=== PATIENT | female | born 1955 | race Caucasian/White ===

== ENCOUNTER 2017-06-10 08:24 | Emergency (ER) | payer BC ==
[2017-06-10 08:49] LABS: ABSOLUTE EOSINOPHILS # (AUTO) 0.1 10^3/uL (0.0-0.6); ABSOLUTE LYMPHOCYTES (AUTO) 2.1 10^3/uL (0.5-4.7); ABSOLUTE MONOCYTES (AUTO) 0.7 10^3/uL (0.1-1.4); BASOPHILS % (AUTO) 0.6 % (0-2); EOSINOPHILS % (AUTO) 1.9 % (0-6); HEMATOCRIT 44.3 % (36.0-47.0); HEMOGLOBIN 14.9 g/dL (12.0-15.5); MEAN CORPUSCULAR HEMOGLOBIN 32.1 pg (27.0-33.4); MEAN CORPUSCULAR HGB CONC 33.7 g/dL (32.0-36.0); MEAN CORPUSCULAR VOLUME 95 fl (80-97); MONOCYTES % (AUTO) 9.6 % (3-13); PLATELET COUNT 362 10^3/uL (150-450); RED BLOOD COUNT 4.64 10^6/uL (3.72-5.28); RED CELL DISTRIBUTION WIDTH 12.6 % (11.5-14.0); SEGMENTED NEUTROPHILS % (AUTO) 57.9 % (42-78); TOTAL CELLS COUNTED % (AUTO) 100 %
[2017-06-10] MEDS ORDERED: METHYLPREDNISOLONE INJ 125 MG/2 ML SDV IV ONE (08:52)
[2017-06-10 09:04] LABS: ALANINE AMINOTRANSFERASE 56 U/L (9-52); ALBUMIN 4.5 g/dL (3.5-5.0); ALKALINE PHOSPHATASE 66 U/L (38-126); ANION GAP 14 (5-19); ASPARTATE AMINO TRANSFERASE 70 U/L (14-36); BILIRUBIN,DIRECT 0.2 mg/dL (0.0-0.4); BILIRUBIN,TOTAL 0.4 mg/dL (0.2-1.3); BLOOD UREA NITROGEN 14 mg/dL (7-20); CALCIUM 10.2 mg/dL (8.4-10.2); CARBON DIOXIDE 25 mmol/L (22-30); CHLORIDE 104 mmol/L (98-107); CREATINE KINASE 149 U/L (30-135); GLUCOSE 95 mg/dL (75-110); POTASSIUM 4.8 mmol/L (3.6-5.0); SODIUM 142.5 mmol/L (137-145); TOTAL PROTEIN 6.4 g/dL (6.3-8.2)
--- NOTE | 2017-06-10 09:07 | RADIOLOGY REPORT (SQ) ---
EXAM DESCRIPTION: CHEST SINGLE VIEW COMPLETED DATE/TIME: 06/10/2017 8:56 am REASON FOR STUDY: SOB COMPARISON: None. NUMBER OF VIEWS: One view. TECHNIQUE: Single frontal radiographic view of the chest acquired. LIMITATIONS: None. FINDINGS: LUNGS AND PLEURA: No opacities, masses or pneumothorax. No pleural effusion. Attenuated bl ood vessels and flattened karson-diaphragms. MEDIASTINUM AND HILAR STRUCTURES: No masses. Contour normal. HEART AND VASCULAR STRUCTURES: Heart normal in size. Normal vasculature. BONES: No acute findings. HARDWARE: None in the chest. OTHER: No other significant finding. IMPRESSION: COPD. NO ACUTE RADIOGRAPHIC FINDING IN THE CHEST. TECHNICAL DOCUMENTATION: JOB ID: [id number] [employer]- All Rights Reserved Reading location - IP/workstation name: [email or web address]
[2017-06-10 09:16] LABS: CREATINE KINASE MB 3.29 ng/mL (<4.55)
[2017-06-10 09:17] LABS: TROPONIN I < 0.012 ng/mL
[2017-06-10 09:37] LABS: APPEARANCE,URINE CLEAR; BILIRUBIN,URINE NEGATIVE (NEGATIVE); COLOR,URINE STRAW; GLUCOSE, URINE NEGATIVE (NEGATIVE); KETONES,URINE NEGATIVE (NEGATIVE); LEUKOCYTE ESTERASE,URINE NEGATIVE (NEGATIVE); NITRITE,URINE NEGATIVE (NEGATIVE); PROTEIN,URINE 30 mg/dL (NEGATIVE); URINE SPECIFIC GRAVITY 1.011; UROBILINOGEN,URINE NEGATIVE mg/dL (<2.0)
--- NOTE | 2017-06-10 11:27 | RADIOLOGY REPORT (SQ) ---
EXAM DESCRIPTION: CTA CHEST COMPLETED DATE/TIME: 06/10/2017 11:03 am REASON FOR STUDY: Rule out PE Chest pain COMPARISON: AP chest 06/10/2017 TECHNIQUE: CT scan of the chest performed using helical scanning technique with dynamic intravenous contrast injection. Images reviewed with lung, soft tissue and bone windows. Reconstructed coronal and sagittal MPR images reviewed. Additional 3 dimensional post-processing performed to develop Maximal Intensity Projection images (PR P). All images stored on PACS. All CT scanners at this facility use dose modulation, iterative reconstruction, and/or weight based d osing when appropriate to reduce radiation dose to as low as reasonably achievable (ALARA). [facility]: Dose Right [facility]: CareDose [facility]: Dose Right [facility]: Teradose 4D [facility]: EntomoPharm CONTRAST TYPE AND DOSE: contrast/concentration: Isovue 370.00 mg/ml; Total Contrast Delivered: 56.0 ml; Total Saline Delivered: 87.0 ml Contrast bolus adequate for pulmonary arteries and aorta. RENAL FUNCTION: Creatinine 0.64 RADIATION DOSE: CT Rad equipment meets quality standard of care and radiation dose reduction techniq ues were employed. CTDIvol: 14.3 - 16.5 mGy. DLP: 526 mGy-cm. . LIMITATIONS: None. FINDINGS: LUNGS AND PLEURA: Mild changes of obstructive lung disease at the apices. No focal infilt rates. No pleural effusion. No pneumothorax. No pulmonary nodules. No pleural effusions or pleura l calcified plaques. AORTA AND GREAT VESSELS: Ascending thoracic aorta 4 cm in diameter. No thoracic aortic dissection HEART: No pericardial effusion. No significant coronary artery calcifications. PULMONARY ARTERIES: No emboli visualized in the main pulmonary arteries or the segmental branches. HILAR AND MEDIASTINAL STRUCTURES: No identified masses or abnormal nodes. HARDWARE: None in the chest. Lumbar fusion hardware at the bottom edge of the field of view. UPPER ABDOMEN: No significant findings. Limited exam. THYROID AND OTHER SOFT TISSUES: No masses. No adenopathy. BONES: Old left posterior healed rib fractures 3D MIPS: Confirm above findings. OTHER: No other significant finding. IMPRESSION: Obstructive lung disease COMMENT: Quality ID # [id number]: Final reports with documentation of one or more dose reduction techniques (e.g., Automated exposure control, adjustment of the mA and/or kV according to patient size, use of iterative reconstruction technique) TECHNICAL DOCUMENTATION: JOB ID: [id number]- All Rights Reserved Reading location - IP/workstation name: [email or web address]
--- NOTE | 2017-06-10 12:23 | ER Document Report ---
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 With increasing shortness of breath and wheezing. No fever chills no productive cough. No other constitutional symptoms. REVIEW OF SYSTEMS: CONSTITUTIONAL : Denies fever, chills, or sweats. Denies recent illness. EENT: Denies eye, ear, throat, or mouth pain or symptoms. Denies nasal or sinus congestion or discharge. Denies throat, tongue, or mouth swelling or difficulty swallowing. CARDIOVASCULAR: Denies chest pain. Denies palpitations or racing or irregular heart beat. Denies ankle edema. RESPIRATORY: Denies cough, cold, or chest congestion. GASTROINTESTINAL: Denies abdominal pain or distention. Denies nausea, vomiting , or diarrhea. Denies blood in vomitus, stools, or per rectum. Denies black, tarry stools. Denies constipation. GENITOURINARY: Denies difficulty urinating, painful urination, burning, frequency, blood in urine, or discharge. FEMALE GENITOURINARY: Denies vaginal bleeding, heavy or abnormal periods, irregular periods. Denies vaginal discharge or odor. MUSCULOSKELETAL: Denies back or neck pain or stiffness. Denies joint pain or swelling. SKIN: Denies rash, lesions or sores. HEMATOLOGIC : Denies easy bruising or bleeding. LYMPHATIC: Denies swollen, enlarged glands. NEUROLOGICAL: Denies confusion or altered mental status. Denies passing out or loss of consciousness. Denies dizziness or lightheadedness. Denies headache. Denies weakness or paralysis or loss of use of either side. Denies problems with gait or speech. Denies sensory loss, numbness, or tingling. Denies seizures. PSYCHIATRIC: Denies anxiety or stress. Denies depression, suicidal ideation, or homicidal ideation. ALL OTHER SYSTEMS REVIEWED AND NEGATIVE. PHYSICAL EXAMINATION: GENERAL: Well-appearing, well-nourished and in no acute distress. Cachexia of emphysema HEAD: Atraumatic, normocephalic. EYES: Pupils equal round and reactive to light, extraocular movements intact, conjunctiva are normal. ENT: Nares patent, oropharynx clear without exudates. Moist mucous membranes. NECK: Normal range of motion, supple without lymphadenopathy LUNGS: Bilaterally decreased breath sounds with diffuse wheezing, bilaterally decreased breath sounds. No wheezes rales or rhonchi. HEART: Regular rate and rhythm without murmurs ABDOMEN: Soft, nontender, nondistended abdomen. No guarding, no rebound. No masses appreciated. Female : deferred Musculoskeletal: Normal range of motion, no pitting or edema. No cyanosis. NEUROLOGICAL: Cranial nerves grossly intact. Normal speech, normal gait. Normal sensory, motor exams PSYCH: Normal mood, normal affect. SKIN: Warm, Dry, normal turgor, no rashes or lesions noted. Dictation was performed using [employer] voice recognition software TRAVEL OUTSIDE OF THE [place] IN LAST 30 DAYS: No - HPI Patient complains to provider of: COPD Duration: Worse/persistent Initiating Event: No: Allergy, Aspiration/Choking, Exertion, Exposure to chemicals, Exposure to dust, Exposure to fumes, Exposure to mold, Exposure to smoke, Out of meds, Sports/exercise, URI, Other Quality of pain: denies: No pain, Achy, Burning, Cramping, Dull, Fullness, Pressure, Sharp, Stabbing, Throbbing, Other Severity: Moderate Pain Level: 4 Context: denies: DVT, Factor V Leiden, Hx asthma, Hx CHF, Hx COPD, Malignancy, , Recent cardiac event, Recent foreign travel, Recent long distance trvl , Recent immobilization, Recent surgery, Smoker, Other Chest pain/discomfort: denies: Center, Constant, Heaviness, Intermittent, Left, Pain, Radiates to arm, Radiates to back, Radiates to jaw, Right, Tightness, Worse with deep breaths Cough: Nonproductive. denies: Productive, Stridor, Suspect aspiration Sputum amount: Scant Sputum color: denies: Brown, Clear, Creamy, [place], Green, [place] tinged, Red (blood ), Red Specks, Rust, Small Clots, Sharp, White, Yellow Sputum consistency: denies: Frothy, Mucoid, Mucoid Plug, Tenacious, Thick, Thin At home treatment: denies: Bronchodilators, CPAP, Diuretics, Inhaled steroids, Oral steroids, Oxygen, Singulair, Theophylline EMS treatments: No: Bronchodilators, CPAP, Diuretics, Epinephrine, Nitrates, Oxygen, Solumedrol Associated symptoms: denies: None, Ankle/leg swelling, Allergy/hay fever, Anxiety, Bloody cough, Chest pain/discomfort, Chills, Congestion, Cough, Dental decay, Difficulty breathing, Earache, Extertional dyspnea, Facial pain, Fever, Headache, Heart racing, Hoarseness, Hurts to breathe, Hyperventilation, Jaw pain , Leg/calf/joint pain, Muscle spasms, Orthopnea, PND, Runny nose, Sinus pain/ pressure, Short of breath, Sore Throat, Sweaty, Tingling face, Tingling hands, Unable to swallow, Toothache, Wheezing, Other - Related Data Allergies/Adverse Reactions: Penicillins Allergy (Verified 06/10/17 09:00) "Rash head to toe" Sulfa (Sulfonamide Antibiotics) Allergy (Verified 06/10/17 09:00) "rash head to toe" Past Medical History - General Information source: Patient - Social History Smoking Status: Current Every Day Smoker Chew tobacco use (# tins/day): No Frequency of alcohol use: None Drug Abuse: None Family History: Reviewed & Not Pertinent Patient has suicidal ideation: No Patient has homicidal ideation: No - Past Medical History Cardiac Medical History: Denies: Hx Coronary Artery Disease, Hx Heart Attack, Hx Hypertension Pulmonary Medical History: Reports: Hx COPD Denies: Hx Asthma, Hx Bronchitis, Hx Pneumonia Neurological Medical History: Denies: Hx Cerebrovascular Accident, Hx Seizures Renal/ Medical History: Denies: Hx Peritoneal Dialysis Musculoskeltal Medical History: Reports Hx Arthritis - BACK - Immunizations Hx Diphtheria, Pertussis, Tetanus Vaccination: Yes Review of Systems - Review of Systems Constitutional: denies: No symptoms reported, See HPI, Chills, Diaphoresis, Fever, Malaise, Weakness, Other, Weight gain, Weight loss, Recent illness EENT: denies: No symptoms reported, See HPI, Eye pain, Eye discharge, Blurred vision, Tearing, Double vision, Ear pain, Ear discharge, Nose pain, Nose congestion, Nose discharge, Sinus pressure, Sinus discharge, Throat pain, Difficulty swallowing, Throat swelling, Mouth pain, Mouth swelling, Dental problem, Vertigo, Other Cardiovascular: denies: No symptoms reported, See HPI, Chest pain, Palpitations , Heart racing, Orthopnea, Dyspnea, Syncope, Dizziness, Lightheaded, Edema, Other, Paroxysmal Nocturnal Dysp Respiratory: See HPI Gastrointestinal: denies: No symptoms reported, See HPI, Abdomen distended, Abdominal pain, Diarrhea, Nausea, Vomiting, Constipation, Blood streaked bowels , Poor appetite, Poor fluid intake, Blood in vomit, Black stools, Rectal bleeding, Last bowel movement, Fecal incontinence, Other Genitourinary: denies: No symptoms reported, See HPI, Burning, Dysuria, Discharge, Frequency, Flank pain, Hematuria, Incontinence, Pain, Urgency, Retention, Other Musculoskeletal: denies: No symptoms reported, See HPI, Back pain, Gout, Joint pain, Joint swelling, Muscle pain, Muscle stiffness, Neck pain, Deformity, Leg swelling, Ankle swelling, Other Neurological/Psychological: denies: No symptoms reported, See HPI, Confusion, Dementia, Depression, Hallucinations, Anxiety, Homicidal ideation, Sensory change, Weakness, Gait changes, Loss of power, Paralysis, Seizure, Lost consciousness, Headaches, Speech impairment, Numbness, Suicidal ideation, Tingling, Tremor, Other Physical Exam - Vital signs Vitals: Resp 20 06/10/17 08:33 Course - Re-evaluation Re-evalutation: 06/10/17 12:24 Was given bronchodilator treatment with clinical improvement discharge home she is still having exertional shortness of breath but not undressed. On resting her pulse oximeter is 94-95% on room air. - Vital Signs Vital signs: Temp Pulse Resp BP Pulse Ox 98.8 F 17 129/100 H 90 L 06/10/17 08:51 06/10/17 12:46 06/10/17 12:46 06/10/17 12:46 - Laboratory Result Diagrams: 06/10/17 08:35 06/10/17 08:35 Laboratory results interpreted by me: 06/10/17 06/10/17 08:35 09:10 AST 70 H ALT 56 H Creatine Kinase 149 H Urine Protein 30 H - Diagnostic Test Radiology reviewed: Reports reviewed - Chest x-ray reported by radiologist as unremarkable except emphysematous pattern. CT of the chest came back negative. - EKG Interpretation by Me EKG shows normal: Sinus rhythm Rate: Normal Rhythm: NSR - Normal sinus rhythm at the rate of 97 bpm normal axis no acute ST elevation ST depression T-wave inversion. Discharge - Discharge Clinical Impression: COPD with acute exacerbation Condition: Fair Disposition: HOME, SELF-CARE Instructions: Chronic Obstructive Lung Disease ([facility]) Additional Instructions: Please follow-up with primary care physician within 1-2 days for home oxygen monitoring Prescriptions: Prednisone [Deltasone 10 mg Tablet] 10 mg PO ASDIR PRN #21 tablet PRN Reason: Referrals: JAIR CARRILLO, [Primary Care Provider] - Follow up as needed
[2017-06-10 12:59] VITALS: BP 129/100
--- NOTE | 2017-06-12 07:54 | EKG REPORT ---
SEVERITY:- DEFECTIVE ECG - SINUS RHYTHM PROBABLE LEFT ATRIAL ABNORMALITY ARM LEADS REVERSED : Confirmed by: Apolinar Lamb MD 12-Jun-2017 07:53:15
== END 2017-06-10 12:51 | disposition home or self-care (01) ==
LOC: ER 08:24
DX: J44.1 Chronic obstructive pulmonary disease with (acute) exacerbation (principal); F17.200 Nicotine dependence, unspecified, uncomplicated; R06.02 Shortness of breath
CPT/HCPCS: 36415; 71045; 71275; 80053; 81001; 82550; 82553; 84484; 85025; 93005; 93010; 99284

== ENCOUNTER 2017-08-24 11:00 | Day surgery (SDC) | payer BC ==
[~2017-08-24 11:00] MED LIST: PROPOFOL INJ 200 MG/20 ML VIAL IV ONE
--- NOTE | 2017-08-24 12:46 | Operative Report ---
Operative Report DATE OF SURGERY: 08/24/17 Operative Report: The risks, benefits and alternatives of the procedure including risks of bleeding, perforation requiring surgery are explained to the patient in detail and informed consent is obtained. The patient is brought back to the endoscopy suite and placed in the left, lateral decubital position. Timeout was called. Propofol medication is administered. A rectal examination is done which did not reveal any masses, tears or fissures. An Olympus videoscope was inserted into the patient's rectum. It is carefully advanced all the way to the cecum. The cecum was identified by the usual anatomical landmarks including the ileocecal valve as well as the appendiceal office. Photodocumentation is obtained. Scope was then sequentially pulled back via the various segments of the colon including the ascending colon, hepatic flexure, transverse colon, splenic flexure, descending colon and finally into the rectosigmoid portions of the colon. Retroflexion maneuvers performed. The risks benefits and alternatives of the procedure explained to the patient in detail and informed consent is obtained.A GIF Olympus video scope was inserted into the patient's mouth and hypopharynx, the esophagus is identified intubated and insufflated ,the scope was then advanced through the esophagus stomach and duodenum, retroflexion maneuver is done, the esophagus stomach and first and second portions of the duodenum examined PREOPERATIVE DIAGNOSIS: Change in bowel habits. Gastroesophageal reflux disease POSTOPERATIVE DIAGNOSIS: Colonoscopy completed to the cecum. Random biopsies obtained in the right side of the colon status post biopsy rule out lymphocytic , microscopic, microscopic colitis. Internal hemorrhoids. Gastritis status post biopsy rule out Helicobacter pylori. Old scarring suggestive of a previous ulcer. Gastric erosion noted OPERATION: Colonoscopy with biopsy. EGD with biopsy SURGEON: PAUL PRATER ANESTHESIA: LMAC TISSUE REMOVED OR ALTERED: As noted above. COMPLICATIONS: None. ESTIMATED BLOOD LOSS: None. INTRAOPERATIVE FINDINGS: As noted above. PROCEDURE: Patient tolerated the procedure well. No immediate postprocedure complications are noted. Patient discharged in good condition. Discharge date 08/24/2017. Discharge diet: Regular. Discharge activity: Regular. 2-3 week follow-up to discuss findings. Patient is instructed to call the office or proceed to the emergency room should there be any further problems or questions. Wait on the pathology.
[2017-08-24 13:05] VITALS: BP 106/75
== END 2017-08-24 13:10 | disposition home or self-care (01) ==
LOC: END 11:00
PROVIDERS: ATTEND Internal Medicine Gastroenterology
PROC: 0DB68ZX Excision of Stomach, Via Natural or Artificial Opening Endoscopic, Diagnostic (ICD-10-PCS; principal; 2017-08-24 14:00)
PROC: 0DBE8ZX Excision of Large Intestine, Via Natural or Artificial Opening Endoscopic, Diagnostic (ICD-10-PCS; 2017-08-24 14:00)
DX: K29.50 Unspecified chronic gastritis without bleeding (principal); K52.831 Collagenous colitis; K64.8 Other hemorrhoids; K21.9 Gastro-esophageal reflux disease without esophagitis; R19.4 Change in bowel habit; J44.9 Chronic obstructive pulmonary disease, unspecified; Z87.891 Personal history of nicotine dependence
CPT/HCPCS: 43239; 45380; 88305 ×2; J2704; 813

== ENCOUNTER → 2019-05-05 | Outpatient (CLI) | payer BC ==
--- NOTE | 2019-05-05 12:55 | RADIOLOGY REPORT (SQ) ---
EXAM DESCRIPTION: CHEST PA/LATERAL COMPLETED DATE/TIME: 05/05/2019 11:49 am REASON FOR STUDY: CHRONIC OBSTRUCTIVE PULMONARY DISEASE W (ACUTE) EXACERBATION COMPARISON: None. EXAM PARAMETERS: NUMBER OF VIEWS: two views TECHNIQUE: Digital Frontal and Lateral radiographic views of the chest acquired. RADIATION DOSE: NA LIMITATIONS: none FINDINGS: LUNGS AND PLEURA: Hyperexpansion of the lungs. MEDIASTINUM AND HILAR STRUCTURES: No masses or contour abnormalities. HEART AND VASCULAR STRUCTURES: Normal heart size. No CHF. Tortuous descending aorta. BONES: No acute findings. HARDWARE: Scoliosis. OTHER: No other significant finding. IMPRESSION: Chronic lung changes with no acute cardiopulmonary finding. Tortuous descending aorta. Scoliosis. TECHNICAL DOCUMENTATION: JOB ID: [id number] 2010 [employer]- All Rights Reserved Reading location - IP/workstation name: [email or web address]
== END ==
LOC: OD 11:28
PROVIDERS: ATTEND Radiology Diagnostic Radiology
DX: J44.1 Chronic obstructive pulmonary disease with (acute) exacerbation (principal)
CPT/HCPCS: 71046

== ENCOUNTER 2019-05-28 23:05 | Inpatient (IN) | payer BC ==
[2019-05-28 23:32] LABS: ABSOLUTE BASOPHILS # (AUTO) 0.1 10^3/uL (0.0-0.2); ABSOLUTE EOSINOPHILS # (AUTO) 0.7 10^3/uL (0.0-0.6); ABSOLUTE MONOCYTES (AUTO) 0.6 10^3/uL (0.1-1.4); ABSOLUTE NEUT (AUTO) 4.9 10^3/uL (1.7-8.2); BASOPHILS % (AUTO) 0.8 % (0-2); HEMATOCRIT 43.6 % (36.0-47.0); HEMOGLOBIN 14.9 g/dL (12.0-15.5); LYMPHOCYTES % (AUTO) 23.8 % (13-45); MEAN CORPUSCULAR HEMOGLOBIN 32.3 pg (27.0-33.4); MEAN CORPUSCULAR HGB CONC 34.2 g/dL (32.0-36.0); MEAN CORPUSCULAR VOLUME 95 fl (80-97); MONOCYTES % (AUTO) 7.3 % (3-13); PLATELET COUNT 433 10^3/uL (150-450); RED CELL DISTRIBUTION WIDTH 12.6 % (11.5-14.0); SEGMENTED NEUTROPHILS % (AUTO) 59.1 % (42-78); TOTAL CELLS COUNTED % (AUTO) 100 %; WHITE BLOOD COUNT 8.3 10^3/uL (4.0-10.5)
[2019-05-28 23:57] LABS: ALBUMIN 4.4 g/dL (3.5-5.0); ALKALINE PHOSPHATASE 80 U/L (38-126); ANION GAP 5 (5-19); ASPARTATE AMINO TRANSFERASE 32 U/L (14-36); BILIRUBIN,TOTAL 0.2 mg/dL (0.2-1.3); BLOOD UREA NITROGEN 14 mg/dL (7-20); CALCIUM 9.7 mg/dL (8.4-10.2); CARBON DIOXIDE 30 mmol/L (22-30); CHLORIDE 102 mmol/L (98-107); GLUCOSE 121 mg/dL (75-110); POTASSIUM 4.3 mmol/L (3.6-5.0); TOTAL PROTEIN 6.8 g/dL (6.3-8.2)
--- NOTE | 2019-05-29 00:29 | ER Document Report ---
ED Respiratory Problem - General Chief Complaint: Breathing Difficulty Stated Complaint: DIFFICULTY BREATHING Time Seen by Provider: 05/28/19 23:24 Primary Care Provider: ROB MCGARRY MD [Primary Care Provider] - Follow up as needed Notes: Patient is a 63-year-old female who presents the emergency department with a chief complaint of shortness of breath. Patient states that she has been short of breath for the past couple of days, but got progressively worse. She has been taking her albuterol inhaler at home. Patient received albuterol and Atrovent, magnesium, and Solu-Medrol in route via ambulance. She states that she feels much better. Patient was admitted on May 18 and was discharged on May 20. She was here in the hospital for a COPD exacerbation. States that she is supposed to be on 2 L nasal cannula only at night, but has been using oxygen 24 hours a day. Patient states that since she was discharged, she does not feel any better. She is currently on inhaled corticosteroids. She was also tested for Covid 19 and results came back negative. She has not traveled since she was discharged. Denies any fever.. TRAVEL OUTSIDE OF THE [place] IN LAST 30 DAYS: No - Related Data Allergies/Adverse Reactions: Penicillins Allergy (Verified 08/24/17 11:22) "Rash head to toe" Sulfa (Sulfonamide Antibiotics) Allergy (Verified 08/24/17 11:22) "rash head to toe" Past Medical History - Social History Smoking Status: Former Smoker Frequency of alcohol use: daily Drug Abuse: Marijuana Family History: CVA, DM, Malignancy. denies: CAD, Hypertension Patient has suicidal ideation: No Patient has homicidal ideation: No - Past Medical History Cardiac Medical History: Denies: Hx Coronary Artery Disease, Hx Heart Attack, Hx Hypertension Pulmonary Medical History: Reports: Hx COPD Denies: Hx Asthma, Hx Bronchitis, Hx Pneumonia Neurological Medical History: Denies: Hx Cerebrovascular Accident, Hx Seizures Endocrine Medical History: Denies: Hx Diabetes Mellitus Type 1, Hx Diabetes Mellitus Type 2, Hx Hyperthyroidism, Hx Hypothyroidism Renal/ Medical History: Denies: Hx Peritoneal Dialysis Malignancy Medical History: Reports: Hx Skin Cancer GI Medical History: Reports: Hx Gastroesophageal Reflux Disease. Denies: Hx Cirrhosis, Hx Crohn's Disease, Hx Hepatitis, Hx Ulcerative Colitis Musculoskeletal Medical History: Reports Hx Arthritis - BACK, Denies Hx Gout Skin Medical History: Denies Hx Eczema, Denies Hx Psoriasis Psychiatric Medical History: Reports: Hx Depression Infectious Medical History: Reports: Hx C-Diff. Denies: Hx Hepatitis Past Surgical History: Reports: Hx Section, Hx Orthopedic Surgery - Back surgery, Other - Skin cancer removed from chest, colonoscopies with biopsies - Immunizations Hx Diphtheria, Pertussis, Tetanus Vaccination: Yes Review of Systems - Review of Systems Notes: REVIEW OF SYSTEMS: CONSTITUTIONAL : Denies recent illness. Denies recent unintentional weight loss. Denies fever, chills, or sweats. EENT: Denies eye, ear, throat, or mouth pain, discharge, or symptoms. Denies nasal or sinus congestion. CARDIOVASCULAR: Denies chest pain. RESPIRATORY: See HPI. GASTROINTESTINAL: Denies nausea, vomiting, and diarrhea. Denies abdominal pain. Denies constipation. GENITOURINARY: Denies difficulty urinating, burning, blood in urine, urgency or frequency. MUSCULOSKELETAL: Denies neck and back pain. Denies joint pain or swelling. SKIN: Denies rash, itchiness, or lesions HEMATOLOGIC : Denies easy bruising or bleeding. LYMPHATIC: Denies swollen, painful, enlarged glands. NEUROLOGICAL: Denies no numbness or tingling denies weakness. Denies headache. Denies altered mental status. Denies alteration in speech. PSYCHIATRIC: Denies stress, anxiety, alteration in sleep patterns, or depression. All other systems reviewed and negative. Physical Exam - Vital signs Vitals: Resp Pulse Ox 28 H 95 05/28/19 23:07 05/28/19 23:07 - Notes Notes: PHYSICAL EXAMINATION: GENERAL: Appears well, healthy, well-nourished, no acute distress. HEAD: Normocephalic, atraumatic. EYES: PERRL, conjunctiva normal, all extraocular movements intact, sclera nonicteric ENT: Moist mucous membranes. NECK: Supple, no noticeable swelling, redness, rash. Normal range of motion. LUNGS: Mild expiratory wheezes noted to bilateral lower lobes. CARDIOVASCULAR: S1-S2, regular rate, regular rhythm. Radial pulses 2+, normal. ABDOMEN: Normoactive bowel sounds. Soft, nontender, no guarding, no rebound tenderness, and no masses palpated. EXTREMITIES: Normal strength and range of motion, no pitting or edema. No cyanosis. NEUROLOGICAL: Moves all extremities upon command. Strength 5/5 in all extremities. PSYCH: Normal mood, normal affect. SKIN: Warm, dry. No rash, lesions, ulcerations noted. Normal skin turgor. Course - Re-evaluation Re-evalutation: 05/29/19 04:16 CTA of the chest does not show any pulmonary emboli. Patient states that she feels short of breath again. We will give her Xopenex, as she is tachycardic. Patient is requesting her Ambien and Paxil. I told her that I can give her her Paxil and a small dose of Ativan to help with her anxiety. 05/29/19 06:17 Patient states that she feels better after receiving Xopenex, but she is still tachycardic. Patient states that she is afraid when she goes home she may not get better and be right back here in the emergency department. I will give her a liter of fluids to see if her tachycardia gets better. 05/29/19 06:53 I had the patient walked by the nursing staff. Patient walked up to the bathroom and back to her room. She was short of breath and tachypnic. Due to the patient being short of breath with exertion, I will call the hospitalist for admission. 05/29/19 07:[address] Key, the lead hospitalist. They state they will call me back. 05/29/19 07:40 Dr. Key called me back. The patient will be admitted to [facility]. - Vital Signs Vital signs: Temp Pulse Resp BP Pulse Ox 25 H 120/89 H 96 05/29/19 07:00 05/29/19 02:00 05/29/19 07:00 - Laboratory Result Diagrams: 05/28/19 23:05 05/28/19 23:05 Laboratory results interpreted by me: 05/28/19 05/28/19 05/29/19 23:05 23:05 01:24 Eos % (Auto) 9.0 H Absolute Eos (auto) 0.7 H ABG pO2 57.4 L ABG HCO3 25.8 H ABG Total CO2 26.9 H ABG O2 Saturation 91.2 L Glucose 121 H - EKG Interpretation by Me Additional EKG results interpreted by me: 05/29/19 Sinus tachycardia. Rate 127. DC 156; QRS 70; QT 276. No acute change from previous EKG done on 05/18/2019. Discharge - Discharge Clinical Impression: Acute exacerbation of chronic obstructive pulmonary disease Condition: Fair Disposition: ADMITTED INPATIENT Admitting Provider: Renato (Hospitalist) Unit Admitted: [facility] Referrals: ROB MCGARRY MD [Primary Care Provider] - Follow up as needed
--- NOTE | 2019-05-29 01:38 | RADIOLOGY REPORT (SQ) ---
Chest one view on 05/29/2019 at 12:44 AM CLINICAL INDICATION: Shortness of breath COMPARISON: 05/18/2019 FINDINGS: Degenerative changes and scoliosis is noted in the spine. Heart is within normal limits for size. The lungs are clear. Hilar and mediastinal contours are within normal limits. Pulmonary vascularity is within normal limits. IMPRESSION: No acute disease.
[2019-05-29 01:55] LABS: ARTERIAL BLOOD FIO2 ROOM AIR; ARTERIAL BLOOD H2CO3 1.13 mmol/L (1.05-1.35); ARTERIAL BLOOD HCO3 25.8 mmol/L (20-24); ARTERIAL BLOOD O2 SATURATION 91.2 % (94-98); ARTERIAL BLOOD PCO2 37.7 mmHg (35-45); ARTERIAL BLOOD PH 7.45 (7.35-7.45); ARTERIAL BLOOD PO2 57.4 mmHg (80-100); ARTERIAL BLOOD TOTAL CO2 26.9 mmol/L (21-25)
--- NOTE | 2019-05-29 03:56 | RADIOLOGY REPORT (SQ) ---
EXAM DESCRIPTION: CT CHEST ANGIOGRAPHY WITHOUT THEN WITH IV CONTRAST COMPLETED DATE/TME: 05/29/2019 01:36 CLINICAL HISTORY: 63 years Female, shortness of breath; tachycardic Comparison: 06/10/17. CR, same day. Technique: IV contrast. Coronal and sagittal reformat. 3d reconstruction. This exam was performed according to our departmental dose-optimization program, which includes automated exposure control, adjustment of the mA and/or kV according to patient size and/or use of iterative reconstruction technique.[facility]: Dose Right [facility]: CareDose [facility]: Dose Right [facility]: Teradose 4D [facility]: Connect LIMITATIONS: Quality of pulmonary arteriogram: Suboptimal. Findings: 4.1 cm diameter ectatic ascending thoracic aorta. There is 50% diameter stenosis focally of the upper abdominal aorta with focal tortuosity and kinking, image 40 of series 601. Posterior lumbar hardware fusion on speaker wirer image. Advanced degenerative disc disease. Moderate scoliotic curvature. Emphysematous hyperinflation. Atelectasis/scar. Likely benign, low-attenuation hepatic lesion(s) not definitively characterized. No pulmonary embolus. No right ventricular strain. Inferior neck, axillae, mediastinum, airway, lymphatics, heart, vasculature, upper abdomen, and musculoskeleton appear otherwise unremarkable. Impression: 1. No acute cardiopulmonary findings. 2. There is chronic 50% diameter stenosis focally of the upper abdominal aorta with focal tortuosity and kinking partially imaged, image 40 of series 601. 3. Stable 4.1 cm diameter ectatic ascending thoracic aorta. 4. No pulmonary embolus. Limitation.
[2019-05-29] MEDS ORDERED: LEVALBUTEROL HCL NEB 1.25 MG/3 ML AMPUL NEB ONE (04:15)
[2019-05-29] MEDS ORDERED: PAROXETINE HCL 20 MG TABLET PO ONE (04:16)
[2019-05-29] MEDS ORDERED: ZOLPIDEM TARTRATE 5 MG TABLET PO ONE (04:16)
[2019-05-29] MEDS ORDERED: LORAZEPAM 0.5 MG TABLET PO ONE (04:21)
[2019-05-29] MEDS ORDERED: NORMAL SALINE 1000 ML 1,000 ML IV ONE (05:52)
[2019-05-29] MEDS ORDERED: ONDANSETRON HCL INJ/PF 4 MG/2 ML SDV IV PRN (08:15)
[2019-05-29] MEDS ORDERED: ACETAMINOPHEN 325 MG TABLET PO PRN (08:15)
[2019-05-29] MEDS ORDERED: IPRATROPIUM/ALBUTEROL 0.5-2.5 MG/3 ML AMPUL NEB ONE (08:15)
--- NOTE | 2019-05-29 08:27 | PDOC H&P ---
History of Present Illness Admission Date/PCP: 05/29/19 08:11 ROB MCGARRY MD Patient complains of: Shortness of breath History of Present Illness: RICKIE CAMERON is a 63 year old female with history of COPD on home oxygen 2 L, chronic smoker recently in the hospital she was tested negative for coronavirus came back today complaining of increasing shortness of breath. On the way to the ER EMS gave her magnesium, nebulizer treatments, Solu-Medrol. Pulse oxes are improved in the emergency room patient has not required BiPAP. Pulse ox is at 96% on 2 L but the patient is complaining of significant shortness of breath on ambulation. CT of the chest was negative for pneumonia negative for pleural effusions. Negative for PE. WBC count is normal. Afebrile. Plan is to keep her in the hospital for COPD exacerbation she admitted to smoke on daily basis. Past Medical History Cardiac Medical History: Denies: Coronary Artery Disease, Myocardial Infarction, Hypertension Pulmonary Medical History: Reports: Chronic Obstructive Pulmonary Disease (COPD) Denies: Asthma, Bronchitis, Pneumonia Neurological Medical History: Denies: Seizures Endocrine Medical History: Denies: Diabetes Mellitus Type 1, Diabetes Mellitus Type 2, Hyperthyroidism, Hypothyroidism Malignancy Medical History: Reports: Skin Cancer GI Medical History: Reports: Gastroesophageal Reflux Disease Denies: Cirrhosis, Crohn's Disease, Hepatitis, Ulcerative Colitis Musculoskeltal Medical History: Reports: Arthritis - BACK Denies: Gout Skin Medical History: Denies: Eczema, Psoriasis Psychiatric Medical History: Reports: Depression Hematology: Denies: Anemia, Bleeding Tendencies Infectious Medical History: Reports: Clostridium Difficile Past Surgical History Past Surgical History: Reports: Section, Orthopedic Surgery - Back surgery, Other - Skin cancer removed from chest, colonoscopies with biopsies Social History Smoking Status: Former Smoker Frequency of Alcohol Use: None Hx Recreational Drug Use: No Drugs: None Hx Prescription Drug Abuse: No - Advance Directive Resuscitation Status: Full Code Family History Family History: CVA, DM, Malignancy. denies: CAD, Hypertension Family History: Hypertension Parental Family History Reviewed: Yes - Hypertension Children Family History Reviewed: No Sibling(s) Family History Reviewed.: No Medication/Allergy Home Medications: Albuterol Sulfate [Proair Respiclick] 4 puff PO Q4HP PRN 10/18/15 Paroxetine HCl 20 mg PO DAILY 10/18/15 Zolpidem Tartrate 10 mg PO QHS 10/18/15 Albuterol Sulfate [Ventolin 0.042% Neb 1.25 mg/3 mL Ampul] 1 vial NEB TID 05/19/19 Loratadine [Claritin] 10 mg PO DAILY 05/19/19 Azithromycin [Zithromax 250 mg Tablet] 500 mg PO DAILY 2 Days #4 tablet 05/21/19 Fluticasone/Umeclidin/Vilanter [Trelegy 100-62.5-25 Mcg Ellipta 14 Dose/Dpi] 1 inh IH DAILY #1 inhaler 05/21/19 Guaifenesin [Robitussin Syrup 200 mg/10 ml Ud Cup] 200 mg PO Q4HP PRN #200 ml 05/21/19 Allergies/Adverse Reactions: Penicillins Allergy (Verified 08/24/17 11:22) "Rash head to toe" Sulfa (Sulfonamide Antibiotics) Allergy (Verified 08/24/17 11:22) "rash head to toe" Review of Systems Constitutional: ABSENT: fever(s), headache(s), weakness Eyes: ABSENT: visual disturbances Ears: ABSENT: hearing changes Nose, Mouth, and Throat: ABSENT: sore throat Cardiovascular: PRESENT: dyspnea on exertion. ABSENT: orthropnea, palpitations Respiratory: PRESENT: dyspnea Gastrointestinal: ABSENT: diarrhea, dysphagia, hematemesis, nausea, vomiting Genitourinary: ABSENT: dysuria, hematuria Musculoskeletal: ABSENT: joint swelling Integumentary: ABSENT: rash, wounds Neurological: ABSENT: abnormal gait, abnormal speech, confusion, dizziness, focal weakness, syncope Psychiatric: ABSENT: anxiety, depression, homidical ideation, suicidal ideation Physical Exam Vital Signs: Temp Pulse Resp BP Pulse Ox 25 H 120/89 H 96 05/29/19 07:00 05/29/19 02:00 05/29/19 07:00 Intake & Output 05/28/19 05/29/19 05/30/19 06:59 06:59 06:59 Intake Total 1000 Balance 1000 Weight 49.2 kg General appearance: PRESENT: no acute distress, thin Head exam: PRESENT: atraumatic Eye exam: PRESENT: conjunctiva pink, PERRLA Ear exam: PRESENT: normal external ear exam Mouth exam: PRESENT: neck supple Teeth exam: PRESENT: poor dentation Neck exam: ABSENT: carotid bruit, JVD, lymphadenopathy, thyromegaly Respiratory exam: PRESENT: decreased breath sounds Cardiovascular exam: PRESENT: RRR. ABSENT: diastolic murmur, rubs, systolic murmur GI/Abdominal exam: PRESENT: normal bowel sounds, soft. ABSENT: distended, guarding, mass, organolmegaly, rebound, tenderness Rectal exam: PRESENT: deferred Extremities exam: PRESENT: full ROM. ABSENT: calf tenderness, clubbing, pedal edema Neurological exam: PRESENT: alert, awake, oriented to person, oriented to place, oriented to time, oriented to situation, CN II-XII grossly intact. ABSENT: motor sensory deficit Psychiatric exam: PRESENT: appropriate affect, normal mood. ABSENT: homicidal ideation, suicidal ideation Results Laboratory Results: 05/28/19 23:05 05/28/19 23:05 05/28/19 05/28/19 05/29/19 23:05 23:05 01:24 WBC 8.3 RBC 4.60 Hgb 14.9 Hct 43.6 MCV 95 MCH 32.3 MCHC 34.2 RDW 12.6 Plt Count 433 Seg Neutrophils % 59.1 Carbonic Acid 1.13 HCO3/H2CO3 Ratio 22:1 ABG pH 7.45 ABG pCO2 37.7 ABG pO2 57.4 L ABG HCO3 25.8 H ABG O2 Saturation 91.2 L ABG Base Excess 2.0 FiO2 ROOM AIR Sodium 137.2 Potassium 4.3 Chloride 102 Carbon Dioxide 30 Anion Gap 5 BUN 14 Creatinine 0.70 Est GFR ( Amer) > 60 Glucose 121 H Calcium 9.7 Total Bilirubin 0.2 AST 32 Alkaline Phosphatase 80 Total Protein 6.8 Albumin 4.4 05/28/19 23:05 Troponin I < 0.012 Impressions: Chest X-Ray 05/29/19 00:31 IMPRESSION: No acute disease. Assessment and Plan - Diagnosis (1) COPD exacerbation Is this a current diagnosis for this admission?: Yes Plan: 05/29/2019-patient is been admitted for COPD exacerbation in [facility] as an inpatient. To continue albuterol nebulizations, DuoNeb nebulizations, incentive spirometry, GI prophylaxis DVT prophylaxis initiated. Started on IV Solu-Medrol 40 mg daily. Smoking counseling was provided. To continue to provide oxygen supplementation 2 L via nasal cannula. Strongly advised to quit smoking. (2) Tobacco abuse Is this a current diagnosis for this admission?: No Plan: 05/29/2019-patient is a chronic daily day smoker smoking counseling was provided for more than 15 minutes. Offered nicotine patches.
--- NOTE | 2019-05-29 09:10 | EKG REPORT ---
SEVERITY:- ABNORMAL ECG - SINUS TACHYCARDIA PROBABLE LEFT ATRIAL ABNORMALITY INFERIOR INFARCT, AGE INDETERMINATE BORDERLINE R WAVE PROGRESSION, ANTERIOR LEADS : Confirmed by: Valentina Nascimento MD 29-May-2019 09:09:21
[2019-05-29 10:39] LABS: URINE AMPHETAMINES SCREEN NEGATIVE; URINE BENZODIAZEPINES SCREEN NEGATIVE; URINE COCAINE SCREEN NEGATIVE; URINE MARIJUANA (THC) SCREEN NEGATIVE; URINE METHADONE SCREEN NEGATIVE; URINE PHENCYCLIDINE SCREEN NEGATIVE
[2019-05-29 10:48] LABS: URINE BARBITURATES SCREEN UNCONFIRMED POSITIVE
[2019-05-29] MEDS: NICOTINE 21 MG/24 HR PATCH.TD24 TD SCH (10:59)
[2019-05-29] MEDS: METHYLPREDNISOLONE INJ 40 MG/1 ML SDV IV SCH ×2 (11:00→22:27)
[2019-05-29] MEDS: IPRATROPIUM/ALBUTEROL 0.5-2.5 MG/3 ML AMPUL NEB PRN ×2 (12:12→17:47)
[2019-05-29] MEDS ORDERED: ALBUTEROL SULFATE 0.083% NEB 2.5 MG/3 ML AMPUL NEB PRN (16:00)
[2019-05-29] MEDS: HEPARIN SOD (PORCINE) 5,000 UNIT/ML 1 ML VIAL SUBCUT SCH ×2 (17:53→22:28)
[2019-05-29] MEDS: PANTOPRAZOLE SODIUM 40 MG TABLET.DR PO SCH (17:54)
[2019-05-29] MEDS ORDERED: [UNRECOGNIZED DRUG - OTHER] NEB SCH (20:00)
[2019-05-29] MEDS ORDERED: ALBUTEROL SULFATE NEB SCH (20:00)
[2019-05-29] MEDS ORDERED: LORAZEPAM 0.5 MG TABLET PO PRN (20:22)
[2019-05-29] MEDS: ALBUTEROL SULFATE 0.083% NEB 2.5 MG/3 ML AMPUL NEB SCH (20:55)
[2019-05-29] MEDS ORDERED: (PENDING PHARMACY ID) (Zolpidem Tartrate [Zolpidem Tartrate] 10 MG) PO SCH (22:00)
[2019-05-29] MEDS: ZOLPIDEM TARTRATE 5 MG TABLET PO SCH (22:27)
[2019-05-29] MEDS: PAROXETINE HCL 20 MG TABLET PO SCH (22:33)
[2019-05-30] MEDS: HEPARIN SOD (PORCINE) 5,000 UNIT/ML 1 ML VIAL SUBCUT SCH ×3 (05:56→22:24)
[2019-05-30] MEDS: PANTOPRAZOLE SODIUM 40 MG TABLET.DR PO SCH ×2 (05:56→18:33)
[2019-05-30 06:41] LABS: ALBUMIN 4.1 g/dL (3.5-5.0); ALKALINE PHOSPHATASE 59 U/L (38-126); ANION GAP 7 (5-19); ASPARTATE AMINO TRANSFERASE 32 U/L (14-36); BILIRUBIN,TOTAL 0.3 mg/dL (0.2-1.3); BLOOD UREA NITROGEN 15 mg/dL (7-20); CALCIUM 9.6 mg/dL (8.4-10.2); CARBON DIOXIDE 26 mmol/L (22-30); CHLORIDE 103 mmol/L (98-107); CHOLESTEROL 174.39 mg/dL (0-200); GLUCOSE 128 mg/dL (75-110); POTASSIUM 4.6 mmol/L (3.6-5.0); TOTAL PROTEIN 6.3 g/dL (6.3-8.2); TRIGLYCERIDES 64 mg/dL (<150)
[2019-05-30 06:52] LABS: DIRECT LDL 84 mg/dL (<100)
[2019-05-30 08:18] LABS: ABSOLUTE BASOPHILS # (AUTO) 0.1 10^3/uL (0.0-0.2); ABSOLUTE LYMPHOCYTES (AUTO) 1.6 10^3/uL (0.5-4.7); ABSOLUTE MONOCYTES (AUTO) 0.5 10^3/uL (0.1-1.4); BASOPHILS % (AUTO) 0.9 % (0-2); EOSINOPHILS % (AUTO) 0.1 % (0-6); HEMATOCRIT 40.9 % (36.0-47.0); HEMOGLOBIN 14.1 g/dL (12.0-15.5); LYMPHOCYTES % (AUTO) 15.5 % (13-45); MEAN CORPUSCULAR HEMOGLOBIN 32.8 pg (27.0-33.4); MEAN CORPUSCULAR HGB CONC 34.4 g/dL (32.0-36.0); MEAN CORPUSCULAR VOLUME 95 fl (80-97); MONOCYTES % (AUTO) 5.3 % (3-13); PLATELET COUNT 386 10^3/uL (150-450); RED BLOOD COUNT 4.29 10^6/uL (3.72-5.28); RED CELL DISTRIBUTION WIDTH 12.9 % (11.5-14.0); SEGMENTED NEUTROPHILS % (AUTO) 78.2 % (42-78); TOTAL CELLS COUNTED % (AUTO) 100 %; WHITE BLOOD COUNT 10.3 10^3/uL (4.0-10.5)
[2019-05-30] MEDS: ALBUTEROL SULFATE 0.083% NEB 2.5 MG/3 ML AMPUL NEB SCH ×3 (08:35→20:14)
--- NOTE | 2019-05-30 09:58 | PDOC PROGRESS REPORT ---
Subjective Progress Note for:: 05/30/19 Subjective:: 63 year old female with history of COPD on home oxygen 2 L, chronic smoker recently in the hospital she was tested negative for coronavirus came back today complaining of increasing shortness of breath. On the way to the ER EMS gave her magnesium, nebulizer treatments, Solu-Medrol. Pulse oxes are improved in the emergency room patient has not required BiPAP. Pulse ox is at 96% on 2 L but the patient is complaining of significant shortness of breath on ambulation. CT of the chest was negative for pneumonia negative for pleural effusions. Negative for PE. WBC count is normal. Afebrile. Plan is to keep her in the hospital for COPD exacerbation she admitted to smoke on daily basis. 05/30/2019-patient is doing better. Pulse ox is 97% on 2 L. No acute events in the last 24 hours. Afebrile. Comfortably in the bed communicating well. Reason For Visit: COPD EXACERBATION Physical Exam Vital Signs: Temp Pulse Resp BP Pulse Ox 98.4 F 105 H 18 134/95 H 99 05/30/19 07:55 05/30/19 07:55 05/30/19 07:55 05/30/19 07:55 05/30/19 07:55 Intake & Output 05/29/19 05/30/19 05/31/19 06:59 06:59 06:59 Intake Total 2176 Output Total 1850 Balance 326 Weight 49.2 kg 42.4 kg General appearance: PRESENT: cooperative, disheveled, thin Head exam: PRESENT: atraumatic Eye exam: PRESENT: PERRLA Ear exam: PRESENT: normal external ear exam Mouth exam: PRESENT: neck supple Teeth exam: PRESENT: poor dentation Neck exam: ABSENT: carotid bruit, JVD, lymphadenopathy, thyromegaly Respiratory exam: PRESENT: decreased breath sounds Cardiovascular exam: PRESENT: RRR. ABSENT: diastolic murmur, rubs, systolic murmur GI/Abdominal exam: PRESENT: normal bowel sounds, soft. ABSENT: distended, guarding, mass, organolmegaly, rebound, tenderness Rectal exam: PRESENT: deferred Extremities exam: PRESENT: full ROM. ABSENT: calf tenderness, clubbing, pedal edema Neurological exam: PRESENT: alert, awake, oriented to person, oriented to place, oriented to time, oriented to situation, CN II-XII grossly intact. ABSENT: motor sensory deficit Psychiatric exam: PRESENT: appropriate affect, normal mood. ABSENT: homicidal ideation, suicidal ideation Results Laboratory Results: 05/30/19 07:37 05/30/19 05:02 05/30/19 05/30/19 05/30/19 05:02 05:02 05:02 WBC Cancelled RBC Cancelled Hgb Cancelled Hct Cancelled MCV Cancelled MCH Cancelled MCHC Cancelled RDW Cancelled Plt Count Cancelled Seg Neutrophils % Cancelled Sodium 135.9 L Potassium 4.6 Chloride 103 Carbon Dioxide 26 Anion Gap 7 BUN 15 Creatinine 0.60 Est GFR ( Amer) > 60 Glucose 128 H Calcium 9.6 Magnesium 2.1 Total Bilirubin 0.3 AST 32 Alkaline Phosphatase 59 Total Protein 6.3 Albumin 4.1 Triglycerides 64 Cholesterol 174.39 LDL Cholesterol Direct 84 VLDL Cholesterol 13.0 HDL Cholesterol 89 TSH 0.29 L 05/30/19 07:37 WBC 10.3 RBC 4.29 Hgb 14.1 Hct 40.9 MCV 95 MCH 32.8 MCHC 34.4 RDW 12.9 Plt Count 386 Seg Neutrophils % 78.2 H Sodium Potassium Chloride Carbon Dioxide Anion Gap BUN Creatinine Est GFR ( Amer) Glucose Calcium Magnesium Total Bilirubin AST Alkaline Phosphatase Total Protein Albumin Triglycerides Cholesterol LDL Cholesterol Direct VLDL Cholesterol HDL Cholesterol TSH 05/28/19 05/29/19 05/29/19 23:05 10:23 14:30 Troponin I < 0.012 < 0.012 < 0.012 NT-Pro-B Natriuret Pep 05/29/19 05/30/19 20:15 05:02 Troponin I < 0.012 NT-Pro-B Natriuret Pep 336 H Impressions: Chest X-Ray 05/29/19 00:31 IMPRESSION: No acute disease. Assessment and Plan - Diagnosis (1) COPD exacerbation Is this a current diagnosis for this admission?: Yes Plan: 05/29/2019-patient is been admitted for COPD exacerbation in [facility] as an inpatient. To continue albuterol nebulizations, DuoNeb nebulizations, incentive spirometry, GI prophylaxis DVT prophylaxis initiated. Started on IV Solu-Medrol 40 mg daily. Smoking counseling was provided. To continue to provide oxygen supplementation 2 L via nasal cannula. Strongly advised to quit smoking. 05/30/[id number]-nslm-old female chronic smoker admitted for COPD exacerbation. Resolving. Pulse ox is 97% on 2 L. Patient is on 2 L of oxygen at home. If she is stable may be able to go back home tomorrow with p.o. prednisone. (2) Tobacco abuse Is this a current diagnosis for this admission?: No (3) Protein-energy malnutrition Is this a current diagnosis for this admission?: Yes Plan: 05/30/2019-patient BMI is less than 19 may have moderate protein energy malnutrition. On examination wasting of the temporalis muscle, deltoid muscle, quadriceps muscle is seen. Dietary consult will be requested and nutrition supplementations will be provided.
[2019-05-30] MEDS ORDERED: [UNRECOGNIZED DRUG - OTHER] PO SCH (10:00)
[2019-05-30] MEDS ORDERED: PAROXETINE HCL 20 MG TABLET PO SCH (10:00)
[2019-05-30] MEDS ORDERED: CALCIUM CARBONATE PO SCH (10:00)
[2019-05-30] MEDS: CYANOCOBALAMIN (VITAMIN B-12) 1,000 MCG TABLET PO SCH (10:31)
[2019-05-30] MEDS: MULTIVITAMIN TABLET PO SCH (10:31)
[2019-05-30] MEDS: METHYLPREDNISOLONE INJ 40 MG/1 ML SDV IV SCH ×2 (10:31→22:25)
[2019-05-30] MEDS: NICOTINE 21 MG/24 HR PATCH.TD24 TD SCH (10:31)
[2019-05-30] MEDS: FLUTICASONE/UMECLIDIN/VILANTER 100-62.5-25 MCG/DOSE IH SCH (10:31)
[2019-05-30] MEDS: FLUTICASONE NASAL SPRAY 50 MCG/SPRY 120 SPRAY/16 GM NASL SCH (22:24)
[2019-05-30] MEDS: GUAIFENESIN 600 MG TABLET.SA PO SCH (22:24)
[2019-05-30] MEDS: PAROXETINE HCL 20 MG TABLET PO SCH (22:25)
[2019-05-30] MEDS: ZOLPIDEM TARTRATE 5 MG TABLET PO SCH (22:26)
[2019-05-31] MEDS: PANTOPRAZOLE SODIUM 40 MG TABLET.DR PO SCH ×2 (05:22→17:15)
[2019-05-31] MEDS: HEPARIN SOD (PORCINE) 5,000 UNIT/ML 1 ML VIAL SUBCUT SCH ×3 (05:22→21:33)
[2019-05-31] MEDS: ALBUTEROL SULFATE 0.083% NEB 2.5 MG/3 ML AMPUL NEB SCH ×3 (08:11→20:12)
[2019-05-31] MEDS: GUAIFENESIN 600 MG TABLET.SA PO SCH ×2 (09:33→21:33)
[2019-05-31] MEDS: METHYLPREDNISOLONE INJ 40 MG/1 ML SDV IV SCH ×2 (09:33→21:33)
[2019-05-31] MEDS: CYANOCOBALAMIN (VITAMIN B-12) 1,000 MCG TABLET PO SCH (09:33)
[2019-05-31] MEDS: MULTIVITAMIN TABLET PO SCH (09:33)
[2019-05-31] MEDS: FLUTICASONE NASAL SPRAY 50 MCG/SPRY 120 SPRAY/16 GM NASL SCH ×2 (09:33→21:38)
[2019-05-31] MEDS: FLUTICASONE/UMECLIDIN/VILANTER 100-62.5-25 MCG/DOSE IH SCH (09:34)
[2019-05-31] MEDS: NICOTINE 21 MG/24 HR PATCH.TD24 TD SCH (09:55)
[2019-05-31 09:57] LABS: FREE T3 3.48 pg/mL (2.77-5.27); FREE T4 (FREE THYROXINE) 1.22 ng/dL (0.78-2.19)
--- NOTE | 2019-05-31 16:28 | PDOC PROGRESS REPORT ---
Subjective Progress Note for:: 05/31/19 Reason For Visit: COPD EXACERBATION Was admitted 2 days ago with COPD exacerbation. Patient uses oxygen at home 2 L nasal cannula Physical Exam Vital Signs: Temp Pulse Resp BP Pulse Ox 98.3 F 110 H 21 H 115/72 98 05/31/19 15:17 05/31/19 15:17 05/31/19 15:17 05/31/19 15:17 05/31/19 15:17 Intake & Output 05/30/19 05/31/19 06/01/19 06:59 06:59 06:59 Intake Total 2176 2116 477 Output Total 1850 2550 800 Balance 326 -434 -323 Weight 42.4 kg 42.2 kg General appearance: PRESENT: no acute distress, other - Taking in full sentences Respiratory exam: PRESENT: decreased breath sounds, wheezes Cardiovascular exam: PRESENT: RRR. ABSENT: diastolic murmur, rubs, systolic murmur Neurological exam: PRESENT: alert, awake, oriented to person, oriented to place, oriented to time, oriented to situation, CN II-XII grossly intact. ABSENT: motor sensory deficit Psychiatric exam: PRESENT: appropriate affect, normal mood. ABSENT: homicidal ideation, suicidal ideation Results Laboratory Results: 05/30/19 07:37 05/30/19 05:02 05/31/19 09:07 Free T4 1.22 Free T3 pg/mL 3.48 05/28/19 05/29/19 05/29/19 23:05 10:23 14:30 Troponin I < 0.012 < 0.012 < 0.012 NT-Pro-B Natriuret Pep 05/29/19 05/30/19 20:15 05:02 Troponin I < 0.012 NT-Pro-B Natriuret Pep 336 H Impressions: Chest X-Ray 05/29/19 00:31 IMPRESSION: No acute disease. Assessment and Plan - Diagnosis (1) Dependence on supplemental oxygen Is this a current diagnosis for this admission?: Yes (2) Acute exacerbation of chronic obstructive pulmonary disease Is this a current diagnosis for this admission?: Yes (3) Tobacco abuse Is this a current diagnosis for this admission?: Yes - Plan Summary Summary: 05/31/2019 Patient tells me she had a "bad night" last night. She tells me she was more short of breath than usual Her vital signs as morning temperature is 98 pulse between 94 and 122, blood pressure is 114/83 and her oxygen is 96% on [address] scan of the chest was negative for pneumonia or PE Patient is currently on Solu-Medrol 40 mg every 12 hours. Patient is also on 0.5 mg of Ativan every 8 hours as needed which she was not taking at home. Flu swab is negative, TSH was low at 0.29. She is on no Synthroid, however free T4 and free T3 are normal If patient has a good day and night I will discharge her in the morning and probably on a short course of Ativan as needed. Also a Medrol Dosepak Patient seems satisfied today with this treatment plan - Time Time Spent with patient: 25-34 minutes
[2019-05-31] MEDS: PAROXETINE HCL 20 MG TABLET PO SCH (21:33)
[2019-05-31] MEDS: ZOLPIDEM TARTRATE 5 MG TABLET PO SCH (21:33)
[2019-06-01] MEDS: HEPARIN SOD (PORCINE) 5,000 UNIT/ML 1 ML VIAL SUBCUT SCH (05:45)
[2019-06-01] MEDS: PANTOPRAZOLE SODIUM 40 MG TABLET.DR PO SCH (05:46)
[2019-06-01] MEDS: ALBUTEROL SULFATE 0.083% NEB 2.5 MG/3 ML AMPUL NEB SCH (07:45)
[2019-06-01] MEDS: NICOTINE 21 MG/24 HR PATCH.TD24 TD SCH (10:30)
[2019-06-01] MEDS: GUAIFENESIN 600 MG TABLET.SA PO SCH (10:30)
[2019-06-01] MEDS: MULTIVITAMIN TABLET PO SCH (10:30)
[2019-06-01] MEDS: CYANOCOBALAMIN (VITAMIN B-12) 1,000 MCG TABLET PO SCH (10:30)
[2019-06-01] MEDS: FLUTICASONE NASAL SPRAY 50 MCG/SPRY 120 SPRAY/16 GM NASL SCH (10:31)
[2019-06-01] MEDS: METHYLPREDNISOLONE INJ 40 MG/1 ML SDV IV SCH (10:31)
[2019-06-01] MEDS: FLUTICASONE/UMECLIDIN/VILANTER 100-62.5-25 MCG/DOSE IH SCH (10:31)
[2019-06-01 11:42] VITALS: BP 118/87
--- NOTE | 2019-06-01 15:34 | PDOC DISCHARGE SUMMARY ---
Impression - Admit/DC Date/PCP Admission Date/Primary Care Provider: 05/29/19 08:11 ROB MCGARRY MD Discharge Date: 06/01/19 - Discharge Diagnosis (1) Dependence on supplemental oxygen Is this a current diagnosis for this admission?: Yes (2) Acute exacerbation of chronic obstructive pulmonary disease Is this a current diagnosis for this admission?: Yes (3) Tobacco abuse Is this a current diagnosis for this admission?: Yes (4) Anxiety Is this a current diagnosis for this admission?: Yes - Assessment Summary: 05/31/2019 Patient tells me she had a "bad night" last night. She tells me she was more short of breath than usual Her vital signs as morning temperature is 98 pulse between 94 and 122, blood pressure is 114/83 and her oxygen is 96% on [address] scan of the chest was negative for pneumonia or PE Patient is currently on Solu-Medrol 40 mg every 12 hours. Patient is also on 0.5 mg of Ativan every 8 hours as needed which she was not taking at home. Flu swab is negative, TSH was low at 0.29. She is on no Synthroid, however free T4 and free T3 are normal If patient has a good day and night I will discharge her in the morning and probably on a short course of Ativan as needed. Also a Medrol Dosepak Patient seems satisfied today with this treatment plan 06/01/2019 Patient was discharged home in good condition today she was sent home with 2 prescriptions one was Ativan 0.5 mg #20 and the next was a Medrol Dosepak. 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 Patient was told to keep her oxygen between 93 and 98% saturation using her home O2. Patient had no clinical indication for antibiotics. Patient was recently discharged from hospital for similar event, within last 2 weeks. Patient felt much better at the time of discharge today than on admission patient had no significant shortness of breath Free T3 and free T4 were normal. Patient was also sent out on NicoDerm patch Primary discharge diagnosis of COPD exacerbation, anxiety, tobacco abuse - Additional Information Resuscitation Status: Full Code Discharge Diet: As Tolerated Discharge Activity: Balance Activity w/Rest, Bedrest Referrals: IZABELLA CLAUDIO MD [ACTIVE STAFF] - 06/08/19 12:30 pm Prescriptions: Lorazepam [Ativan 0.5 mg Tablet] 0.5 mg PO Q8HP PRN 7 Days #20 tablet PRN Reason: Methylprednisolone [Medrol Dosepack (4 mg/Tab) 21 Tab/Dosepak] 4 mg PO ASDIR PRN #21 tab.ds.pk PRN Reason: Nicotine [Nicoderm 21 mg/24 Hr Transderm Patch] 1 each TD DAILY 30 Days #30 patch.td24 Home Medications: Paroxetine HCl 20 mg PO DAILY 10/18/15 Zolpidem Tartrate 10 mg PO QHS 10/18/15 Fluticasone/Umeclidin/Vilanter [Trelegy 100-62.5-25 Mcg Ellipta 14 Dose/Dpi] 1 inh IH DAILY #1 inhaler 05/21/19 Albuterol Sulfate [Albuterol Sulfate Hfa] 2 puff IH Q4HP PRN 05/29/19 Albuterol Sulfate [Ventolin 0.083% Neb 2.5 mg/3 mL Ampul] 1 vial NEB RTTIDP PRN 05/29/19 Calcium Carbonate/Magnesium Ox [Oyster Shell Calcium-Magnes Tb] 1 tab PO DAILY 05/29/19 Cyanocobalamin (Vitamin B-12) [Vitamin B-12 1000 mcg Tablet] 1,000 mcg PO DAILY 05/29/19 Multivitamin [Tab-A-Jamaal (Multiple Vitamin) Tablet] 1 tab PO DAILY 05/29/19 Acetaminophen [Tylenol 325 mg Tablet] 650 mg PO Q4HP PRN tablet 06/01/19 Albuterol Sulfate [Ventolin 0.083% Neb 2.5 mg/3 mL Ampul] 2.5 mg NEB RTTID vial.neb 06/01/19 Lorazepam [Ativan 0.5 mg Tablet] 0.5 mg PO Q8HP PRN 7 Days #20 tablet 06/01/19 Methylprednisolone [Medrol Dosepack (4 mg/Tab) 21 Tab/Dosepak] 4 mg PO ASDIR PRN #21 tab.ds.pk 06/01/19 Nicotine [Nicoderm 21 mg/24 Hr Transderm Patch] 1 each TD DAILY 30 Days #30 patch.td24 06/01/19 History of Present Illiness History of Present Illness: RICKIE CAMERON is a 63 year old female Physical Exam Vital Signs: Temp Pulse Resp BP Pulse Ox 97.7 F 101 H 18 118/87 H 98 06/01/19 11:40 06/01/19 11:40 06/01/19 11:40 06/01/19 11:40 06/01/19 11:40 Intake & Output 05/31/19 06/01/19 06/02/19 06:59 06:59 06:59 Intake Total 2116 1157 Output Total 2555 5670 Balance -434 -2143 Weight 42.2 kg 44 kg Results Laboratory Results: WBC 10.3 10^3/uL (4.0-10.5) 05/30/19 07:37 RBC 4.29 10^6/uL (3.72-5.28) 05/30/19 07:37 Hgb 14.1 g/dL (12.0-15.5) 05/30/19 07:37 Hct 40.9 % (36.0-47.0) 05/30/19 07:37 MCV 95 fl (80-97) 05/30/19 07:37 MCH 32.8 pg (27.0-33.4) 05/30/19 07:37 MCHC 34.4 g/dL (32.0-36.0) 05/30/19 07:37 RDW 12.9 % (11.5-14.0) 05/30/19 07:37 Plt Count 386 10^3/uL (150-450) 05/30/19 07:37 Lymph % (Auto) 15.5 % (13-45) 05/30/19 07:37 [place] % (Auto) 5.3 % (3-13) 05/30/19 07:37 Eos % (Auto) 0.1 % (0-6) 05/30/19 07:37 Baso % (Auto) 0.9 % (0-2) 05/30/19 07:37 Absolute Neuts (auto) 8.0 10^3/uL (1.7-8.2) 05/30/19 07:37 Absolute Lymphs (auto) 1.6 10^3/uL (0.5-4.7) 05/30/19 07:37 Absolute Monos (auto) 0.5 10^3/uL (0.1-1.4) 05/30/19 07:37 Absolute Eos (auto) 0.0 10^3/uL (0.0-0.6) 05/30/19 07:37 Absolute Basos (auto) 0.1 10^3/uL (0.0-0.2) 05/30/19 07:37 Seg Neutrophils % 78.2 % (42-78) H 05/30/19 07:37 Platelet Estimate Cancelled 05/30/19 05:02 Carbonic Acid 1.13 mmol/L (1.05-1.35) 05/29/19 01:24 HCO3/H2CO3 Ratio 22:1 05/29/19 01:24 ABG pH 7.45 (7.35-7.45) 05/29/19 01:24 ABG pCO2 37.7 mmHg (35-45) 05/29/19 01:24 ABG pO2 57.4 mmHg (80-100) L 05/29/19 01:24 ABG HCO3 25.8 mmol/L (20-24) H 05/29/19 01:24 ABG Total CO2 26.9 mmol/L (21-25) H 05/29/19 01:24 ABG O2 Saturation 91.2 % (94-98) L 05/29/19 01:24 ABG Base Excess 2.0 mmol/L 05/29/19 01:24 FiO2 ROOM AIR 05/29/19 01:24 Sodium 135.9 mmol/L (137-145) L 05/30/19 05:02 Potassium 4.6 mmol/L (3.6-5.0) 05/30/19 05:02 Chloride 103 mmol/L (98-107) 05/30/19 05:02 Carbon Dioxide 26 mmol/L (22-30) 05/30/19 05:02 Anion Gap 7 (5-19) 05/30/19 05:02 BUN 15 mg/dL (7-20) 05/30/19 05:02 Creatinine 0.60 mg/dL (0.52-1.25) 05/30/19 05:02 Est GFR ( Amer) > 60 (>60) 05/30/19 05:02 Est GFR (MDRD) Non-Af > 60 (>60) 05/30/19 05:02 Glucose 128 mg/dL (75-110) H 05/30/19 05:02 Calcium 9.6 mg/dL (8.4-10.2) 05/30/19 05:02 Magnesium 2.1 mg/dL (1.6-2.3) 05/30/19 05:02 Total Bilirubin 0.3 mg/dL (0.2-1.3) 05/30/19 05:02 Direct Bilirubin 0.0 mg/dL (0.0-0.4) 05/30/19 05:02 Neonat Total Bilirubin Not Reportable 05/30/19 05:02 Neonat Direct Bilirubin Not Reportable 05/30/19 05:02 Neonat Indirect Bili Not Reportable 05/30/19 05:02 AST 32 U/L (14-36) 05/30/19 05:02 ALT 20 U/L (<35) 05/30/19 05:02 Alkaline Phosphatase 59 U/L (38-126) 05/30/19 05:02 Troponin I < 0.012 ng/mL 05/29/19 20:15 NT-Pro-B Natriuret Pep 336 pg/mL (<125) H 05/30/19 05:02 Total Protein 6.3 g/dL (6.3-8.2) 05/30/19 05:02 Albumin 4.1 g/dL (3.5-5.0) 05/30/19 05:02 Triglycerides 64 mg/dL (<150) 05/30/19 05:02 Cholesterol 174.39 mg/dL (0-200) 05/30/19 05:02 LDL Cholesterol Direct 84 mg/dL (<100) 05/30/19 05:02 VLDL Cholesterol 13.0 mg/dL (10-31) 05/30/19 05:02 HDL Cholesterol 89 mg/dL (>40) 05/30/19 05:02 TSH 0.29 uIU/mL (0.47-4.68) L 05/30/19 05:02 Free T4 1.22 ng/dL (0.78-2.19) 05/31/19 09:07 Free T3 pg/mL 3.48 pg/mL (2.77-5.27) 05/31/19 09:07 Urine Opiates Screen NEGATIVE 05/29/19 09:00 Urine Methadone Screen NEGATIVE 05/29/19 09:00 Ur Barbiturates Screen UNCONFIRMED POSITIVE 05/29/19 09:00 Ur Phencyclidine Scrn NEGATIVE 05/29/19 09:00 Ur Amphetamines Screen NEGATIVE 05/29/19 09:00 U Benzodiazepines Scrn NEGATIVE 05/29/19 09:00 Urine Cocaine Screen NEGATIVE 05/29/19 09:00 U Marijuana (THC) Screen NEGATIVE 05/29/19 09:00 Influenza A (Rapid) Cancelled 05/28/19 23:15 Influenza B (Rapid) Cancelled 05/28/19 23:15 Group A Strep Rapid Cancelled 05/28/19 23:15 Slides for Path Review Cancelled 05/30/19 05:02 05/28/19 05/29/19 05/29/19 23:05 10:23 14:30 Troponin I < 0.012 < 0.012 < 0.012 NT-Pro-B Natriuret Pep 05/29/19 05/30/19 20:15 05:02 Troponin I < 0.012 NT-Pro-B Natriuret Pep 336 H Impressions: Chest X-Ray 05/29/19 00:31 IMPRESSION: No acute disease. Stroke Is this a Stroke Patient?: No Acute Heart Failure - Is this a Heart Failure Patient?: No
== END 2019-06-01 13:17 | disposition home or self-care (01) | DRG 191 ==
LOC: ER 23:05 → EH 05-29 08:11 → 3W 05-29 09:32
PROVIDERS: ADMIT Internal Medicine; ATTEND Physician Assistant
DX: J44.1 Chronic obstructive pulmonary disease with (acute) exacerbation (principal); Z68.1 Body mass index [BMI] 19.9 or less, adult; E46 Unspecified protein-calorie malnutrition; Z88.0 Allergy status to penicillin; Z88.2 Allergy status to sulfonamides; Z87.891 Personal history of nicotine dependence; K21.9 Gastro-esophageal reflux disease without esophagitis; M19.90 Unspecified osteoarthritis, unspecified site; F32.9 Major depressive disorder, single episode, unspecified; Z82.3 Family history of stroke; Z82.49 Family history of ischemic heart disease and other diseases of the circulatory system; Z83.3 Family history of diabetes mellitus; Z79.899 Other long term (current) drug therapy; Z79.51 Long term (current) use of inhaled steroids; Z99.81 Dependence on supplemental oxygen; F41.9 Anxiety disorder, unspecified
CPT/HCPCS: 36415; 71045; 71275; 80053; 80061; 80307; 82803; 83735; 83880; 84439; 84443; 84481; 84484; 85025; 93005; 93010; 94640; 94799; 96360; 99285; J1644; J2920; J3490; J7030; J7620

== ENCOUNTER → 2019-06-08 | Outpatient (CLI) | payer BC ==
[2019-06-08 16:41] LABS: ABSOLUTE BASOPHILS # (AUTO) 0.1 10^3/uL (0.0-0.2); ABSOLUTE EOSINOPHILS # (AUTO) 0.3 10^3/uL (0.0-0.6); ABSOLUTE LYMPHOCYTES (AUTO) 2.2 10^3/uL (0.5-4.7); ABSOLUTE MONOCYTES (AUTO) 0.9 10^3/uL (0.1-1.4); ABSOLUTE NEUT (AUTO) 4.3 10^3/uL (1.7-8.2); BASOPHILS % (AUTO) 0.9 % (0-2); HEMATOCRIT 40.3 % (36.0-47.0); HEMOGLOBIN 13.8 g/dL (12.0-15.5); LYMPHOCYTES % (AUTO) 28.8 % (13-45); MEAN CORPUSCULAR HEMOGLOBIN 32.8 pg (27.0-33.4); MEAN CORPUSCULAR HGB CONC 34.3 g/dL (32.0-36.0); MEAN CORPUSCULAR VOLUME 96 fl (80-97); PLATELET COUNT 436 10^3/uL (150-450); RED BLOOD COUNT 4.22 10^6/uL (3.72-5.28); RED CELL DISTRIBUTION WIDTH 13.1 % (11.5-14.0); SEGMENTED NEUTROPHILS % (AUTO) 55.3 % (42-78); TOTAL CELLS COUNTED % (AUTO) 100 %; WHITE BLOOD COUNT 7.8 10^3/uL (4.0-10.5)
== END ==
LOC: OD 15:17
PROVIDERS: ATTEND Registered Nurse
DX: J43.9 Emphysema, unspecified (principal)
CPT/HCPCS: 36415; 82785; 85025; 86003

== ENCOUNTER → 2020-02-16 | Outpatient (CLI) | payer BC ==
--- NOTE | 2020-02-16 10:33 | RADIOLOGY REPORT (SQ) ---
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 TECHNIQUE: Under fluoroscopic guidance, patient ingested effervescent granules followed by thick and thin barium. Fluoroscopic spot images and routine radiographic images acquired and stored on PACS. 12 MM BARIUM TABLET GIVEN: Barium tablet passed through the esophagus and into the stomach without de lay. LIMITATIONS: None. FLUOROSCOPY TIME: FLUORO TIME: 2.2 minutes 6 images saved to PACS. FINDINGS: NEUROMUSCULAR COORDINATION OF SWALLOW: Normal. No aspiration. ESOPHAGEAL MOTILITY: Normal peristalsis. No esophageal spasm. ESOPHAGEAL MUCOSA: Normal mucosa without masses or ulceration. GASTRO-ESOPHAGEAL JUNCTION: No hiatal hernia or reflux. NON-GI TRACT STRUCTURES: No significant finding. OTHER: No delay in gastric emptying observed. IMPRESSION: NORMAL DOUBLE CONTRAST BARIUM SWALLOW. RECOMMENDATION: None COMMENT: None Quality ID [id number]: Final reports for procedures using fluoroscopy that document radiation exposure [place] viry, or exposure time and number of fluorographic images (if radiation exposure indices are not avail able) TECHNICAL DOCUMENTATION: JOB ID: [id number] 2010 [employer]- All Rights Reserved Reading location - IP/workstation name: [facility]
== END ==
LOC: RAD 08:33
PROVIDERS: ATTEND Nurse Practitioner Family
DX: K31.1 Adult hypertrophic pyloric stenosis (principal)
CPT/HCPCS: 74220